=== PATIENT | male | born 1980 | race Caucasian/White ===

== ENCOUNTER 2019-09-16 22:54 | Observation (INO) | payer OTHER, SELFPAY ==
--- NOTE | 2019-09-16 22:51 | ECG_ITS ---
APPROVED REPORT Exam: Resting ECG HR:112 bpm ECG Measurements Heart Rate 112 AXES TN 150 P 63 QRSd 86 QRS 83 QT 328 T 25 QTc 447 <Conclusion> Sinus tachycardia Abnormal ECG Electronically signed by : Julio Martinez, 09/17/2019 19:47:37
[2019-09-16 22:58] VITALS: BP 151/91; PULSE 100; RESP 16; TEMP 36.8; O2SAT 96; BMI 33.2
--- NOTE | 2019-09-16 22:58 | XR_ITS ---
PROCEDURE: XR CHEST 2V CLINICAL HISTORY: cp Chest pain, smoker COMPARISON: No exams were available for comparison FINDINGS: The cardiomediastinal silhouette and pulmonary vascularity are within normal limits. The lungs are clear without infiltrates, suspicious nodules, or pleural effusions. No acute bony abnormalities. IMPRESSION: No acute findings. Dictated by: Osmany Vazquez MD 09/17/2019 07:07 Electronically signed by Osmany Vazquez MD in [place] 09/17/2019 07:07
[2019-09-16 23:05] LABS: Basophils # 0.1 K/mm3 (0-0.2); Basophils % 0.6 % (0.1-2.0); Eosinophils # 0.4 K/mm3 (0.0-0.4); Eosinophils % 3.3 % (0.1-12.0); Hematocrit 50.4 % (42.0-52.0); Hemoglobin 17.3 g/dL (14.1-18.0); Lymphocytes # 3.6 K/mm3 (0.7-4.5); Lymphocytes % 32.9 % (10-50); Mean Corpuscular HGB Conc 34.3 g/dL (31.8-35.4); Mean Corpuscular Hemoglobin 32.1 pg (27.0-31.2); Mean Corpuscular Volume 93.6 fl (80-94); Mean Platelet Volume 8.7 fl (7.4-10.4); Monocytes # 0.7 K/mm3 (0.1-1.0); Monocytes % 6.5 % (1.7-9.3); Neutrophils # 6.2 K/mm3 (1.8-7.8); Neutrophils % 56.7 % (37.0-80.0); Platelet Count 164 K/mm3 (142-424); Red Blood Count 5.39 M/mm3 (4.60-6.20); Red Cell Distribution Width 13.3 % (11.5-17.5); White Blood Count 10.9 K/mm3 (4.8-10.8)
[2019-09-16 23:07] LABS: Chloride 102 mmol/L (98-107); Sodium 136 mmol/L (136-145)
[2019-09-16 23:08] LABS: Potassium 3.5 mmoL/L (3.5-5.1)
[2019-09-16 23:10] LABS: Blood Urea Nitrogen 17 mg/dl (9-20); Creatinine Clearance Estimated 171 mL/min (50-200); Estimated Glomerular Filt Rate 93 ml/min (>60); GFR (African American) 113 ML/MIN (>60)
[2019-09-16 23:11] LABS: Anion Gap 11.5 mEq/L (5-15); Calcium 9.7 mg/dl (8.4-10.2); Carbon Dioxide 26 mmol/L (22.0-30.0); Glucose 159 mg/dl (74-100)
--- NOTE | 2019-09-16 23:15 | HMH.EDCP ---
ED Disposition Clinical Impression: Obesity (BMI 30.0-34.9), Tobacco use Chest pain Qualifiers: Chest pain type: precordial pain Qualified Code(s): R07.2 - Precordial pain HTN (hypertension) Qualifiers: Hypertension type: essential hypertension Qualified Code(s): I10 - Essential (primary) hypertension Disposition: Admitted as Observation Condition on Discharge: Good - Critical Care Critical Care Time: No Attestation: On , the high probability of a clinically significant, sudden or life threatening deterioration of the following system(s) required my full and direct attention, intervention and personal management. The time I documented below is in addition to time spent performing reported procedures but includes the following listed in this critical care notation. Medical Decision Making - Medical Records Medical records reviewed: Yes: I reviewed the patient's medical records. - Smith Inquiry Pt receiving controlled substance: No Vital Signs: 09/16/19 22:58 Temperature 98.2 F Temperature Source Oral Pulse Rate [Right Brachial] 100 H Respiratory Rate 16 Blood Pressure [Right Arm] 151/91 H Blood Pressure Mean [Right Arm] 111 Blood Pressure Source [Right Arm] Automatic Cuff Blood Pressure Position [Right Arm] Sitting 02 Sat by Pulse Oximetry 96 Oxygen Delivery Method Room Air - Lab Data Lab results reviewed: Yes: I reviewed the patient's lab results. Lab Results 09/16/19 22:57: WBC 10.9 H, RBC 5.39, Hgb 17.3, Hct 50.4, MCV 93.6, MCH 32.1 H, MCHC 34.3, RDW 13.3, Plt Count 164, MPV 8.7, Neut % (Auto) 56.7, Lymph % (Auto) 32.9, [place] % (Auto) 6.5, Eos % (Auto) 3.3, Baso % (Auto) 0.6, Neut # (Auto) 6.2, Lymph # (Auto) 3.6, [place] # (Auto) 0.7, Eos # (Auto) 0.4, Baso # (Auto) 0.1 09/16/19 22:57: Sodium 136, Potassium 3.5, Chloride 102, Carbon Dioxide 26, Anion Gap 11.5, BUN 17, Creatinine 0.90, Estimated Creat Clear 171, Estimated GFR 93, Est GFR ( Amer) 113, Glucose 159 H, Calcium 9.7, Troponin I < 0.01 Result diagrams: 09/16/19 22:57 09/16/19 22:57 Orders (Tests/Meds): ED MEDICATIONS Discontinued Medications Generic Name Dose Route Start Last Admin Trade Name Marcos PRN Reason Stop Dose Admin Nitroglycerin 1 gm 09/16/19 23:04 09/16/19 23:15 Nitroglycerin 1 Inch Oint Udp TD 09/16/19 23:05 1 gm ONCE ONE Administration ORDERS Category Date Time Status XR chest 2V Stat Exams 09/16/19 22:58 Taken Brain Natriuretic Peptide Stat Lab 09/16/19 22:57 Received T4 (Thyroxine) Stat Lab 09/16/19 22:57 Received TSH [Thyroid Stimulating Hormone] Stat Lab 09/16/19 22:57 Received Troponin I Q3H Lab 09/17/19 02:00 Ordered Troponin I Q3H Lab 09/17/19 05:00 Ordered 12-lead EKG Request [ECG Request by /Marcus] Stat Y 09/16/19 22:58 Ordered - Radiology Data #1 Image(s): Chest Image Reviewed: Yes I reviewed the patient's radiology image Preliminary Findings: Abnormal (possible chf ) - ECG Data Tracing #1 Arrhythmias present: sinus tach Ischemic changes: non-specific ST-T wave changes - MARÍA ELENA Score for Non-Stemi Age of Patient: 40-49 years old Heart Rate: 90-109 bpm Systolic Blood Pressure: 140-159 mmHg Serum Creatinine: 0.80-1.19 mg/dl CHF [place] Class: I-No CHF Other Risk Factors: None Non-Stemi Risk Score: 71 Chest Pain HPI - General Chief Complaint: Chest Pain Stated Complaint: CP Time Seen by Provider: 09/16/19 23:00 Mode of Arrival: EMS Source of Information: Patient, EMS, Medical Record Limitations: No Limitations Description of Symptoms (Recalled from ER Triage Doc. 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 EMS reports he received 2 of nitro in route and patient reports that seem to help his pain alot. - History of Present Illness HPI narrative: pt with acute irreg pulse and assoc chest p
[2019-09-16 23:25] VITALS: BP 160/97; PULSE 91; O2SAT 95
[2019-09-16 23:25] LABS: Troponin I < 0.01 ng/ml (0.00-0.034)
[2019-09-16 23:33] LABS: NT Pro Brain Natriuretic Pep. 20.4 pg/mL (0-125)
[2019-09-16 23:42] LABS: T4 (Thyroxine) 8.7 ug/dl (5.53-11.0)
[2019-09-16 23:54] LABS: Thyroid Stimulating Hormone 2.65 uIU/mL (0.465-4.68)
[2019-09-17] VITALS (7 sets, daily range): BP systolic 128–155; BP diastolic 73–100; PULSE 66–98; RESP 16–18; TEMP 36.6–36.8; O2SAT 94–99; BMI 34.9; BMI 34.2
--- NOTE | 2019-09-17 00:10 | PC.NURSE ---
Report phoned from Eulalia Valencia,RN [id number]. 39 yr old male pt arrived via EMS to ED, c/o palpitations, left sided chest pain, numbness and tingling in left arm. EMS gave nitro, pt had already taken his daily allotment of aspirin at home. A&Ox4, up fine moving in the room, EMS established #20 in L hand. Pt only takes the Aspirin and Nexium, only history HTN, which he is supposed to take meds for that but hasn't been for past couple months or so. Pt reports hasn't seen a doctor in over 20 years. Nitro Paste applied in ED, TROP negative, Labs ok except WBC - 10.9. Pt can come via W/C. Pt not on status board, phoned sawmilling operator Brandy, who reported pt had not been here before and required a lot of information to be put in the computer and would get it done as soon as possible. Pt just popped up in, staff to get pt at this time.
--- NOTE | 2019-09-17 00:24 | PC.NURSE ---
pt arrived to the floor via wheelchair from ED
[2019-09-17 02:16] LABS: Troponin I < 0.01 ng/ml (0.00-0.034)
--- NOTE | 2019-09-17 04:37 | PC.NURSE ---
Pt pleasant and cooperative, appeared anxious during admission. Explained POC, NPO, lab draws, ECHO and Cardiology consult, pt voiced understanding. Pt has not been in the hospital to spend the night, had knee surgery but went home. Explained bed operation, TV, call light, tele monitoring and to alert staff of any chest discomfort (pt agreed). NSR on tele, no c/o chest pain thus far. Pt reports having HTN and supposed to be taking medicine, however hasn't been taking it. 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 Intermittent sleep, IV infusing well with no problems noted, remains safe, monitoring continues.
[2019-09-17 05:57] LABS: Basophils % 0.4 % (0.1-2.0); Eosinophils # 0.2 K/mm3 (0.0-0.4); Eosinophils % 2.8 % (0.1-12.0); Hematocrit 47.8 % (42.0-52.0); Hemoglobin 16.3 g/dL (14.1-18.0); Lymphocytes # 2.5 K/mm3 (0.7-4.5); Lymphocytes % 30.2 % (10-50); Mean Corpuscular HGB Conc 34.1 g/dL (31.8-35.4); Mean Corpuscular Volume 93.8 fl (80-94); Mean Platelet Volume 8.1 fl (7.4-10.4); Monocytes # 0.6 K/mm3 (0.1-1.0); Monocytes % 6.9 % (1.7-9.3); Neutrophils # 4.9 K/mm3 (1.8-7.8); Neutrophils % 59.7 % (37.0-80.0); Platelet Count 154 K/mm3 (142-424); Red Cell Distribution Width 13.2 % (11.5-17.5); White Blood Count 8.2 K/mm3 (4.8-10.8)
[2019-09-17 06:00] LABS: Chloride 107 mmol/L (98-107)
[2019-09-17 06:01] LABS: Potassium 3.9 mmoL/L (3.5-5.1); Sodium 136 mmol/L (136-145)
[2019-09-17 06:03] LABS: Blood Urea Nitrogen 16 mg/dl (9-20); Creatinine Clearance Estimated 199 mL/min (50-200); Estimated Glomerular Filt Rate 107 ml/min (>60); GFR (African American) 130 ML/MIN (>60)
[2019-09-17 06:04] LABS: Anion Gap 5.9 mEq/L (5-15); Calcium 8.9 mg/dl (8.4-10.2); Carbon Dioxide 27 mmol/L (22.0-30.0); Chol/HDL Ratio 5.3 (1-3.5); Cholesterol 163 mg/dl (140-200); Glucose 120 mg/dl (74-100); HDL Cholesterol 31 mg/dl (40-60); Triglycerides 169 mg/dl (30-150); VLDL Cholesterol 34 mg/dL (0-40)
[2019-09-17 06:05] LABS: Magnesium 2.2 mg/dl (1.6-2.3)
[2019-09-17 06:15] LABS: Direct LDL Cholesterol 124.68 mg/dL (100-129)
[2019-09-17 06:16] LABS: Troponin I < 0.01 ng/ml (0.00-0.034)
--- NOTE | 2019-09-17 07:42 | HMH.PHAVTE ---
[facility] Pharmacy VTE Monitoring - Patient Demographics Admission date: 09/16/19 Report Date: 09/17/19 Time: 07:42 Allergies/Adverse Reactions: Patient Allergies No Known Allergies Allergy (Verified 09/16/19 23:03) Height: 1.83 m Weight: 114.787 kg Patient Problems: Current Active Problems Chest pain (Acute) Obesity (BMI 30.0-34.9) (Acute) HTN (hypertension) (Acute) Tobacco use (Acute) - VTE Risk Labs: VTE Related Lab Results Hgb 16.3 g/dL (14.1-18.0) 09/17/19 05:42 Hct 47.8 % (42.0-52.0) 09/17/19 05:42 Plt Count 154 K/mm3 (142-424) 09/17/19 05:42 BUN 16 mg/dl (9-20) 09/17/19 05:42 Creatinine 0.80 mg/dl (0.66-1.25) 09/17/19 05:42 Estimated Creat Clear 199 mL/min (50-200) 09/17/19 05:42 Was VTE Risk Assessment Performed: Yes VTE Score: 2 VTE Risk Level: Very Low Risk Clinical Trial Participant: No - Prophylaxis VTE Prophylaxis Ordered?: Yes Types of VTE Prophylaxis: TEDS Knee High
--- NOTE | 2019-09-17 08:00 | CA_ITS ---
APPROVED REPORT EXAM: Comprehensive 2D, Doppler, and color-flow Echocardiogram Threader: Mariella Mack CRT Ht: 6 ft 0 in Wt: 245lbs BSA: 2.32 BP: 112/84 mmHg Indications: Obesity, Palpitations, Hypertension/HDD 2D Dimensions LVOT 2.06 cm (M/F) 1.5-2.5 M-Mode Dimensions RVDd 2.72 cm (0.9-2.6) LVDd 4.72 cm (3.5-5.7) LVDs 3.36 cm (3.5-5.7) IVSd 1.86 cm (0.6-1.1) PWd 0.89 cm (0.6-1.1) EF (Teich) 55.40% FS 28.80% EDV (Teich) 103.40 mL ESV (Teich) 46.10 mL LV Diastology E/A Ratio 1.46 Mitral Valve MV A Velocity 56.00 (40-130 cm/s) Left Ventricle Left atrium is normal size, left ventricle is normal size, there is no concentric left ventricular hypertrophy, visually estimated ejection fraction 55% with no regional wall motion abnormality, diastolic parameters are within normal range. Right Ventricle Right atrium and right ventricle are normal size and contractility. Aortic Valve Aortic valve is grossly normal, there is no aortic stenosis or aortic insufficiency. Mitral Valve Mitral valve is grossly normal, there is trace mitral regurgitation. Tricuspid Valve Tricuspid valve is grossly normal, there is trace tricuspid regurgitation. Pulmonic Valve Pulmonic valve is grossly normal. Great Vessels Aortic root is not well visualized. Pericardium No significant pericardial effusion noted. Conclusion 1. Normal left ventricular size, preserved left ventricular systolic function, visually estimated ejection fraction 55% with no regional wall motion abnormality, diastolic parameters are within normal range. 2. Trace mitral and tricuspid regurgitation. 3. No significant pericardial effusion noted. Electronically signed by : Nile Ventura, 09/17/2019 11:48:22
--- NOTE | 2019-09-17 08:15 | HMH.CNCARD ---
History of Present Illness Consult date: 09/17/19 Requesting physician: Ortiz Younger Consult reason: chest pain Chief complaint: chest pain Additional Medical History:: 1. History of nephrolithiasis status post surgical removal, approximately 2013 2. History of hypertension, previously on metoprolol but patient discontinued it on his own 3. Tobacco use, 1/2 pack/day for 20 years 4. History of right knee surgery after being stepped on by a cow History of present illness: 39-year-old white male admitted for chest discomfort with associated left shoulder and left arm discomfort. Symptoms improved after nitroglycerin. Patient's blood pressure noted to be elevated on admission with subsequent improvement after nitroglycerin. Symptoms resolved with improvement in blood pressure. Patient's EKG is sinus with no acute ST segment changes. Troponins are normal x3. Cardiology consulted for evaluation and recommendations. Patient is a smoker and previously took blood pressure medication but discontinued it on his own after 1 month of treatment. 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 He admits his diet is not good and eats horribly and drinks caffeine as well. [facility] History Medical History: Reports:: Hypertension Denies:: Cancer, Diabetes Mellitus Type 1, Diabetes Mellitus Type 2, MRSA *Have you ever received a pneumonia vaccine?: Yes *Have you received a flu vaccine this season?: No (refused) Laterality Cases: Right: ACL Repair Other Surgeries: Yes: Ureter Stent Amputation: No Fractures: No - *Social History Educational Level: Completed High School Smoking Status: Current every day smoker Tobacco Type: cigarettes # Packs/Day (cigarettes): 1 Alcohol Intake: current Alcohol Intake Frequency:: 3 or more drinks per day *Occupational Status:: employed Housing: house Household Members: significant other *Travel in the last 8 weeks: None Family Hx:: Heart Attack Meds Home Medications Medication Instructions Recorded Confirmed Type Esomeprazole Magnesium [Nexium] 40 mg PO DAILY 09/16/19 09/16/19 History Aspirin [Adult Low Dose Aspirin EC] 81 mg PO DAILY 09/17/19 09/17/19 History Allergies Allergy/AdvReac Type Severity Reaction Status Date / Time No Known Allergies Allergy Verified 09/16/19 23:03 Review of Systems - Review of Systems Review of systems:: pertinent systems reviewed and negative unless documented below - *Cardiovascular Reports chest pain, Reports shortness of breath with activity - *Respiratory Denies cough - *Gastrointestinal Denies loose stools, Denies nausea, Denies vomiting - *Genitourinary Denies blood in urine - *Musculoskeletal Denies joint pain, Denies back pain - *Neurologic Denies frequent falls, Denies headache(s), Denies seizure-like activity Exam Vital signs and Labs for Last 24 Hours: Temp Pulse Resp BP Pulse Ox 97.8 F 78 18 128/83 94 L 09/17/19 04:00 09/17/19 04:00 09/17/19 04:00 09/17/19 04:00 09/17/19 04:00 Laboratory Results - last 24 hr 09/16/19 22:57: WBC 10.9 H, RBC 5.39, Hgb 17.3, Hct 50.4, MCV 93.6, MCH 32.1 H, MCHC 34.3, RDW 13.3, Plt Count 164, MPV 8.7, Neut % (Auto) 56.7, Lymph % (Auto) 32.9, [place] % (Auto) 6.5, Eos % (Auto) 3.3, Baso % (Auto) 0.6, Neut # (Auto) 6.2, Lymph # (Auto) 3.6, [place] # (Auto) 0.7, Eos # (Auto) 0.4, Baso # (Auto) 0.1 09/16/19 22:57: Sodium 136, Potassium 3.5, Chloride 102, Carbon Dioxide 26, Anion Gap 11.5, BUN 17, Creatinine 0.90, Estimated Creat Clear 171, Estimated GFR 93, Est GFR ( Amer) 113, Glucose 159 H, Calcium 9.7, Troponin I < 0.01 09/16/19 22:57: NT-Pro-B Natriuret Pep 20.4, TSH 2.65, Thyroxine (T4) 8.7 09/17/19 01:50: Troponin I < 0.01 09/17/19 05:42: Troponin I < 0.01 09/17/19 05:42: WBC 8.2, RBC 5.10, Hgb 16.3, Hct 47.8,
--- NOTE | 2019-09-17 11:10 | HMH.HPDC ---
General - General Admission date:: 09/17/19 Discharge date: 09/17/19 *Admission Date: 09/16/19 *Chief complaint: chest pain *History of present illness: 39-year-old male presented to ed with c/o of cp. Pt admitted for chest discomfort with associated left shoulder and left arm discomfort. Symptoms improved after nitroglycerin. Patient's blood pressure was elevated on admission with subsequent improvement after nitroglycerin. Pt states symptoms resolved with improvement in blood pressure. Patient's EKG is sinus with no acute ST segment changes. Troponins are normal x3. Cardiology consulted for evaluation and recommendations.Patient is a smokes when he drinks beer and previously took blood pressure medication but discontinued it on his own after 1 month of treatment. [facility] History I have reviewed the patient's past medical history: Yes Medical History: Reports:: Hypertension Denies:: Cancer, Diabetes Mellitus Type 1, Diabetes Mellitus Type 2, MRSA *Have you ever received a pneumonia vaccine?: Yes *Have you received a flu vaccine this season?: No (refused) Laterality Cases: Right: ACL Repair Other Surgeries: Yes: Ureter Stent Amputation: No Fractures: No - *Social History Educational Level: Completed High School Smoking Status: Current every day smoker Tobacco Type: cigarettes # Packs/Day (cigarettes): 1 Alcohol Intake: current Alcohol Intake Frequency:: 3 or more drinks per day *Occupational Status:: employed Housing: house Household Members: significant other *Travel in the last 8 weeks: None Family Hx:: Heart Attack Review of Systems - Review of Systems Review of systems:: pertinent systems reviewed and negative unless documented below - Constitutional Denies body ache(s), Denies fever(s) - Eyes Denies blurry vision - ENT Denies bleeding gums, Denies nasal congestion - *Cardiovascular Reports chest pain, Reports chest pain at rest, Reports chest pain with activity, Reports shortness of breath, Reports shortness of breath with activity - *Respiratory Denies chest congestion, Denies cough - *Gastrointestinal Denies vomiting - *Musculoskeletal Denies joint pain - Integumentary/Breasts Denies rash - *Neurologic Denies frequent falls, Denies headache(s), Denies seizure-like activity - Psychiatric Denies anxiety - Endocrine Denies excessive sweating - Hematologic/Lymphatic Denies easy bruising Exam Vital signs and Labs for Last 24 Hours: Temp Pulse Resp BP Pulse Ox 97.8 F 66 16 142/73 H 94 L 09/17/19 08:00 09/17/19 08:00 09/17/19 08:00 09/17/19 08:00 09/17/19 08:21 Laboratory Results - last 24 hr 09/16/19 22:57: WBC 10.9 H, RBC 5.39, Hgb 17.3, Hct 50.4, MCV 93.6, MCH 32.1 H, MCHC 34.3, RDW 13.3, Plt Count 164, MPV 8.7, Neut % (Auto) 56.7, Lymph % (Auto) 32.9, [place] % (Auto) 6.5, Eos % (Auto) 3.3, Baso % (Auto) 0.6, Neut # (Auto) 6.2, Lymph # (Auto) 3.6, [place] # (Auto) 0.7, Eos # (Auto) 0.4, Baso # (Auto) 0.1 09/16/19 22:57: Sodium 136, Potassium 3.5, Chloride 102, Carbon Dioxide 26, Anion Gap 11.5, BUN 17, Creatinine 0.90, Estimated Creat Clear 171, Estimated GFR 93, Est GFR ( Amer) 113, Glucose 159 H, Calcium 9.7, Troponin I < 0.01 09/16/19 22:57: NT-Pro-B Natriuret Pep 20.4, TSH 2.65, Thyroxine (T4) 8.7 09/17/19 01:50: Troponin I < 0.01 09/17/19 05:42: Troponin I < 0.01 09/17/19 05:42: WBC 8.2, RBC 5.10, Hgb 16.3, Hct 47.8, MCV 93.8, MCH 32.0 H, MCHC 34.1, RDW 13.2, Plt Count 154, MPV 8.1, Neut % (Auto) 59.7, Lymph % (Auto) 30.2, [place] % (Auto) 6.9, Eos % (Auto) 2.8, Baso % (Auto) 0.4, Neut # (Auto) 4.9, Lymph # (Auto) 2.5, [place] # (Auto) 0.6, Eos # (Auto) 0.2, Baso # (Auto) 0.0 09/17/19 05:42: Sodium 136, Potassium 3.9, Chloride 107, Carbon Dioxide 27, Anion Gap 5.9, BUN 16, Creatinine 0.80, Estimated Creat Clear 199, Estimated GFR 107, Est GFR ( Amer) 130, Glucose 120 H D, Calcium 8.9, Triglycerides 169 H, Cholesterol 163, LDL Cholesterol Direct 124.68, VLDL Sheree
--- NOTE | 2019-09-17 11:53 | HMH.PHAINT ---
DISCHARGE COUNSELING COMPLETE. SPOKE WITH PATIENT REGARDING ADDITION OF METOPROLOL TO HOME REGIMEN. PATIENT ENDORSED NO QUESTIONS AT THIS TIME.
== END 2019-09-17 12:10 | disposition home or self-care (01) ==
LOC: ER 23:56 → 2ND 09-17 00:07
PROVIDERS: Admitting Provider Emergency Medicine; Emergency Provider Emergency Medicine; Visit Provider Emergency Medicine
DX: R07.9 Chest pain, unspecified (principal); I10 Essential (primary) hypertension; Z72.0 Tobacco use
CPT/HCPCS: 36415; 71046; 80048; 80061; 83735; 83880; 84436; 84443; 84484; 85025; 93005; 93306; 96365; 99284; G0378

== ENCOUNTER → 2019-09-23 12:32 | Outpatient (CLI) | payer OTHER, SELFPAY ==
--- NOTE | 2019-09-23 12:40 | CT_ITS ---
PROCEDURE: CT HEAD/BRAIN WO CON CLINICAL INDICATION: near syncope Dizziness with near-syncope COMPARISON: No exams were available for comparison TECHNIQUE: Axial images obtained. All CT scans at the facility use one or more dose reduction, viz: automated exposure control, ma/kV adjustment per patient size (including targeted exams where dose is matched to indication, i.e. head), or iterative reconstruction technique. FINDINGS: No midline shift, mass effect, intracranial hemorrhage, hydrocephalus, or extra-axial fluid collection is evident. The calvarium has an unremarkable appearance. No mastoid effusion. There is mild mucosal thickening of the right maxillary sinus IMPRESSION: No acute intracranial finding Dictated by: Osmany Vazquez MD 09/23/2019 13:23 Electronically signed by Osmany Vazquez MD in [place] 09/23/2019 13:23
== END ==
PROVIDERS: PCP Family Medicine; Visit Provider Urology
DX: R42 Dizziness and giddiness (principal); R55 Syncope and collapse; R07.9 Chest pain, unspecified; E66.9 Obesity, unspecified; I10 Essential (primary) hypertension; Z72.0 Tobacco use
CPT/HCPCS: 70450